=== PATIENT | female | born 1980 | race Caucasian/White ===

== ENCOUNTER 2016-08-08 16:57 | Emergency (ER) | payer OTHER, MEDICAID ==
--- NOTE | 2016-08-15 14:37 | ER ---
ADMIT: 08/08/2016 RM/LOC: ER [facility] MR#: [id number] [address] [facility] [address] [place] [id number] ALLI PARISHJU ANTOINE V [address] [place] [address] Emergency Room Report SEX: F AGE: 35 : 1980 DATE: 08/08/2016 ADDENDUM: CHIEF COMPLAINT: Neck pain. HISTORY OF PRESENT ILLNESS: This is a patient who works at [employer]. She helped clean out the mouth of a cow. She does a lot of pulling. She has hurt the right side of her neck into her shoulder area, but there is no trauma. I have told her more than likely this is just the muscle strain that she just needs to continue NSAID, use ice or heat, stretch out that area and follow up as needed. CLINICAL IMPRESSION: Cervical strain. BERNY Mckinley / Uriel Morgan MD / modl JOB #: [id number] CC: Uriel Morgan MD, Attending Physician David Maher MD, Family Physician
== END 2016-08-08 18:10 | disposition home or self-care (01) ==
LOC: ER 16:57
DX: S16.1XXA Strain of muscle, fascia and tendon at neck level, initial encounter (principal); E03.9 Hypothyroidism, unspecified; G40.909 Epilepsy, unspecified, not intractable, without status epilepticus; F17.210 Nicotine dependence, cigarettes, uncomplicated; Z79.899 Other long term (current) drug therapy; X58.XXXA Exposure to other specified factors, initial encounter; Y92.69 Other specified industrial and construction area as the place of occurrence of the external cause; Y99.0 Civilian activity done for income or pay

== ENCOUNTER 2016-10-02 13:31 | Emergency (ER) | payer MEDICAID ==
--- NOTE | 2016-10-08 10:35 | ER ---
ADMIT: 10/02/2016 RM/LOC: ER [facility] MR#: [id number] [address] [facility] [address] [place], [place] [id number] JU ALEMAN V [address] [place] [address] Emergency Room Report SEX: F AGE: 35 : 1980 DATE: 10/02/2016 BRIEF ADDENDUM: PRIMARY CARE: Dr. Maher. Please see my T-sheet for complete review of systems, past medical history, and physical exam. CHIEF COMPLAINT: Chest discomfort. HISTORY OF PRESENT ILLNESS: This is a 35-year-old, [place]auan-speaking female, who presents to the ER with 3 to 4 days' duration of nausea, shortness of breath, palpitation, dizziness, vomiting, and headache. The patient states she recently started taking phentermine for weight loss and has had these problems shortly after beginning this medication. She described some chest tightness and pressure, does not radiate. Does have a history of some anxiety and depression as well as a seizure disorder and hypothyroidism. Takes Keppra and levothyroxine. Does smoke about a half a pack per day. COURSE IN THE EMERGENCY ROOM: The patient was seen and examined. She is in mild amount of distress. She is anxious, however alert. Chest is nontender to palpation. She has no respiratory distress. Breath sounds are normal bilaterally. Regular rate and rhythm. No murmurs, gallops, or rubs. Abdomen is soft, nondistended. Did get EKG on her, no ST-T or T-wave abnormalities. LABORATORY DATA: White count 6.5, hemoglobin 11.1, hematocrit 35.0, platelets 304. Sodium 140, potassium 3.5, CO2 of 26, BUN 15, creatinine 1.0. Liver enzymes are within normal limits. Troponin less than 0.015. TSH 2.880, T4 of 1.34. D-dimer was 0.34 below the cut off range. Urine does have some blood, but she is currently on her menses. No signs of acute infection. ADMIT: 10/02/2016 RM/LOC: [facility] MR#: [id number] [address] [id number] JU ALEMAN V [address] [place] [address] Emergency Room Report SEX: F AGE: 35 : 1980 IMPRESSION: 1. Atypical chest pain. 2. Anxiety. 3. Headache. 4. Insomnia. 5. Likely adverse reaction to phentermine. DISPOSITION: The patient was discharged home. She is to stop taking her phentermine. Increase her fluids as tolerated. Tylenol or Motrin for pain. Return home and rest. Return with worsening symptoms. Follow up with Dr. Maher as needed. Questions sought and answered to the best of my ability and to the patient's satisfaction. Discharged in stable condition. BERNY Purcell / Uriel Morgan MD / sarahl JOB #: [id number] CC: Uriel Morgan MD, Attending Physician David Maher MD, Family Physician
== END 2016-10-02 16:40 | disposition home or self-care (01) ==
LOC: ER 13:31
DX: R07.89 Other chest pain (principal); F41.9 Anxiety disorder, unspecified; R51 Headache; G47.00 Insomnia, unspecified; G40.909 Epilepsy, unspecified, not intractable, without status epilepticus; F17.210 Nicotine dependence, cigarettes, uncomplicated; Z90.49 Acquired absence of other specified parts of digestive tract; Z98.890 Other specified postprocedural states